=== PATIENT | female | born 1970 | race Caucasian/White ===

== ENCOUNTER 2017-02-10 19:55 | Emergency (ER) | payer MEDICAID ==
[~2017-02-10] VITALS: Ht 149.9 cm; Wt 75.0 kg
[2017-02-10 20:00] VITALS: Ht 149.9 cm; Wt 75.0 kg
[2017-02-10 20:46] LABS: POTASSIUM 3.1 mmol/L (3.5-5.1)
[2017-02-10 20:48] LABS: CREATININE 0.61 mg/dl (0.44-1.00)
[2017-02-10 20:49] LABS: CALCIUM 9.6 mg/dl (8.4-10.2)
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
[2017-02-10] MEDS ORDERED: IOHEXOL 300MG/ML 30 ML BTL ONE (21:34)
[2017-02-10] MEDS ORDERED: SOD CHLORIDE 0.9% 100 ML ONE (21:34)
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
[2017-02-10] MEDS ORDERED: POTASSIUM CHLORIDE (SR) 20 MEQ TAB PO STA (22:26)
[2017-02-10] MEDS ORDERED: IBUP800T25 PO (22:40)
[2017-02-10] MEDS ORDERED: HYDR-902 PO (22:40)
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
[2017-02-10 23:20] VITALS: BP 133/89; PULSE 66; RESP 16; TEMP 98.4
== END 2017-02-10 23:26 | disposition home or self-care (01) ==
LOC: E/R 19:55
DX: S39.81XA Other specified injuries of abdomen, initial encounter (principal); S20.212A Contusion of left front wall of thorax, initial encounter; V43.52XA Car driver injured in collision with other type car in traffic accident, initial encounter
CPT/HCPCS: 71010; 74177; 80048; 84703; Q9967; Z7610; 36415